=== PATIENT | female | born 1970 | race Two or more races ===

== ENCOUNTER 2016-11-20 11:18 | Emergency (ER) | payer MEDICAID ==
[~2016-11-20] VITALS: Ht 162.6 cm; Wt 62.0 kg
[2016-11-20] MEDS ORDERED: SODIUM CHLORIDE 0.9% 1,000 ML IV ONE (14:13)
[2016-11-20] MEDS ORDERED: ONDANSETRON HCL 4MG/2ML VIAL IV ONE (14:15)
[2016-11-20 14:35] VITALS: BP 124/72
== END 2016-11-20 14:43 | disposition left against medical advice (07) ==
LOC: ER 11:18
DX: R11.2 Nausea with vomiting, unspecified (principal); J02.9 Acute pharyngitis, unspecified
CPT/HCPCS: 99283; Z7610; J2405; J7030